=== PATIENT | female | born 1975 | race American Indian/Alaskan Native ===

== ENCOUNTER 2018-09-25 02:56 | Emergency (ER) | payer SELFPAY ==
[2018-09-25 03:11] VITALS: BP 146/98
== END 2018-09-25 03:06 | disposition left against medical advice (07) ==
LOC: ED 02:56
DX: K08.89 Other specified disorders of teeth and supporting structures (principal); Z53.21 Procedure and treatment not carried out due to patient leaving prior to being seen by health care provider

== ENCOUNTER 2019-04-27 06:25 | Emergency (ER) | payer MEDICAID ==
[2019-04-27 06:36] VITALS: BP 148/107
[2019-04-27 08:42] LABS: Bilirubin,Urine NEG (Negative); Blood,Urine NEG (Negative); Color,Urine Straw (Yellow); HCG Qualitative,Urine Negative (Negative); Protein,Urine <15 mg/dL mg/dL (Negative); Urobilinogen,Urine < 2.0 mg/dL (<2.0); WBC,Urine < 1.0 /HPF (0.0-6.0)
--- NOTE | 2019-04-27 09:11 | Emergency Department Report ---
HPI - General Chief Complaint: Back Pain/Injury Time Seen by Provider: 04/27/19 08:47 - HPI HPI: 43-year-old AA female presents to the emergency department with a complaint of right lower back pain has been going on for the past 2-3 days. She denies any f all, obvious injury, new workout regimen to, or any other known inciting event. She denies any problems with bowel or bladder, numbness or paresthesias or any neurological deficits. She has tried some Advil for her symptoms without any relief. 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 She does not have a primary care physician but has made an appointment to establish care on May 16. ED Past Medical Hx - Past Medical History Previous Medical History?: No - Surgical History Past Surgical History?: Yes Additional Surgical History: Tubal Ligation - Social History Smoking Status: Former Smoker Substance Use Type: None - Medications Home Medications: Home Medications Medication Instructions Recorded Confirmed Last Taken Type Cyclobenzaprine [Flexeril] 10 mg PO TID PRN #12 tablet 04/27/19 Unknown Rx ED Review of Systems ROS: Stated complaint: BACK PAIN Other details as noted in HPI Comment: All other systems reviewed and negative Constitutional: denies: chills, fever Respiratory: denies: shortness of breath Cardiovascular: denies: chest pain Gastrointestinal: denies: abdominal pain Genitourinary: denies: dysuria, discharge Musculoskeletal: back pain. denies: arthralgia Neurological: denies: weakness, numbness, paresthesias Physical Exam - Physical Exam Vital Signs: Vital Signs 04/27/19 06:28 Temperature 98.3 F Pulse Rate 80 Respiratory 20 Rate Blood Pressure 148/107 O2 Sat by Pulse 98 Oximetry Physical Exam: GENERAL: The patient is well-developed well-nourished. HENT: Normocephalic. Atraumatic. Patient has moist mucous membranes. EYES: Extraocular motions are intact. NECK: Supple. Trachea is midline. ABDOMEN: There is no abdominal distention. SKIN: Skin is warm and dry. NEURO: The patient is awake, alert, and oriented. The patient is cooperative. The patient has no focal neurologic deficits. The patient has normal speech. MUSCULOSKELETAL: There is no tenderness or deformity. There is no limitation range of motion. There is no evidence of acute injury. DTR patella +2 over 4 bilaterally. BACK: There is no midline thoracic or lumbar tenderness to palpation, step-off or deformity. There is reproducible right lateral lumbar tenderness to palpation. ED Course Vital Signs 04/27/19 06:28 Temperature 98.3 F Pulse Rate 80 Respiratory 20 Rate Blood Pressure 148/107 O2 Sat by Pulse 98 Oximetry ED Medical Decision Making - Medical Decision Making This patient presents with some right lateral lower back pain that has been going on for the past few days. There was no trauma, injury or inciting event. No midline thoracic or lumbar tenderness to palpation, step-off or deformity. The back pain is reproducible and appears musculoskeletal. For all these reasons I did not feel that any imaging was necessary at this time. She has intact patellar DTR. The patient was seen ambulatory and appears stable. She has an appointment with a primary care physician in a few weeks but has been instructed to return with any worsening of her symptoms or any acute distress. Discharged home with some muscle relaxers to go along with the anti- inflammatories. No problems with bowel or bladder, numbness or paresthesias or any neurological deficits. - Differential Diagnosis muscle spasm, lumbar strain, nephrolithiasis Critical Care Time: No Critical care attestation.: If time is entered above; I have spent that time in minutes in the direct care of this critically ill patient, excluding procedure time. ED Disposition Clinical Impression: Back pain Qualifiers: Back pain location: low back pain Chronicity: unspecified Back pain laterality: right Sciatica presence: without sciatica Qualified Code(s): M54.5 - Low back pain Disposition: TO HOME OR SELFCARE Is pt being admited?: No Condition: Stable Instructions: Back Pain (ED) Additional Instructions: Please follow up with a primary care physician in the next few days if possible. Return to the emergency department with any worsening of your symptoms or any acute distress. You can try ice or heat, but nothing directly against the skin. You have been prescribed a medication that is sedating and therefore should not be taken prior to driving, working, and responsible for children and in no way should be mixed with alcohol of any quantity. Prescriptions: Cyclobenzaprine [Flexeril] 10 mg PO TID PRN #12 tablet PRN Reason: Muscle Spasm Referrals: PRIMARY CARE, [Primary Care Provider] - 3-5 Days Forms: Work/School Release Form(ED) Time of Disposition: 09:11
== END 2019-04-27 09:43 | disposition home or self-care (01) ==
LOC: ED 06:25
DX: M54.5 Low back pain (principal); Z98.51 Tubal ligation status; Z87.891 Personal history of nicotine dependence; Z88.1 Allergy status to other antibiotic agents
CPT/HCPCS: 81001; 81025